=== PATIENT | male | born 1965 | race Caucasian/White ===

== ENCOUNTER 2018-01-20 15:38 | Emergency (ER) | payer OTHER ==
[~2018-01-20] VITALS: Ht 177.8 cm; Wt 74.8 kg
[~2018-01-20 15:38] MED LIST: FLOMAX PO; KETO10TA2 PO; LEVSIN/SL0.125 MG PO; PROCARDIA90 MG/BLIS; TOPROL XL50 M1
[2018-01-20] MEDS ORDERED: BUPROPION XL150 MG (16:15)
[2018-01-20] MEDS ORDERED: CYMBALTA60 MG (16:15)
[2018-01-20] MEDS ORDERED: PREDNISONE10 MG (16:16)
[2018-01-20] MEDS ORDERED: NEURONTIN600 MG (16:16)
[2018-01-20] MEDS ORDERED: ZYPREXA10 MG (16:16)
[2018-01-20] MEDS ORDERED: CLONAZEPAM0.5 MG (16:17)
[2018-01-20] MEDS ORDERED: ZANAFLEX4 M1 (16:17)
[2018-01-20] MEDS ORDERED: NORFLEX100MG (16:17)
[2018-01-20] MEDS ORDERED: RESTORIL15 MG (16:18)
[2018-01-20] MEDS ORDERED: BUDESONIDE0.5 MG/2 M (16:18)
[2018-01-20] MEDS ORDERED: IPRATROPIU0.2 MG/1 M (16:19)
== END 2018-01-20 23:46 | disposition home or self-care (01) ==
LOC: ER 15:38
DX: N20.0 Calculus of kidney (principal); R10.11 Right upper quadrant pain; R10.31 Right lower quadrant pain

== ENCOUNTER 2018-12-01 21:42 | Emergency (ER) | payer OTHER ==
[~2018-12-01] VITALS: Ht 177.8 cm; Wt 82.6 kg
[~2018-12-01 21:42] MED LIST changes: +BUDESONIDE0.5 MG/2 M; +BUPROPION XL150 MG; +CLONAZEPAM0.5 MG; +CYMBALTA60 MG; +IPRATROPIU0.2 MG/1 M; +NEURONTIN600 MG; +NORFLEX100MG; +PREDNISONE10 MG; +RESTORIL15 MG; +ZANAFLEX4 M1; +ZYPREXA10 MG
== END 2018-12-01 22:57 | disposition home or self-care (01) ==
LOC: ER 21:42
DX: M76.892 Other specified enthesopathies of left lower limb, excluding foot (principal)

== ENCOUNTER 2018-12-06 09:31 | Emergency (ER) | payer OTHER ==
[~2018-12-06] VITALS: Ht 175.3 cm; Wt 81.6 kg
== END 2018-12-06 15:47 | disposition home or self-care (01) ==
LOC: ER 09:31
DX: N20.1 Calculus of ureter (principal)

== ENCOUNTER 2021-08-20 19:26 | Emergency (ER) | payer OTHER ==
[~2021-08-20] VITALS: Ht 177.8 cm; Wt 86.2 kg
[2021-08-20] MEDS ORDERED: VERELAN180 MG (20:29)
== END 2021-08-20 23:55 | disposition home or self-care (01) ==
LOC: ER 19:26
DX: R10.2 Pelvic and perineal pain (principal); R30.0 Dysuria